=== PATIENT | male | born 1985 | race Two or more races ===

== ENCOUNTER 2017-10-08 14:58 | Emergency (ER) | payer OTHER ==
[~2017-10-08] VITALS: Ht 172.7 cm; Wt 72.6 kg
--- NOTE | 2017-10-08 15:40 | Emergency Room Report ---
History of Present Illness General Chief Complaint: To Be Triaged Source: Patient Present Illness HPI 32-year-old male, no significant past medical history, presenting with left pinky laceration. He was handling sheet metal, cut it. Had some bleeding. Has still been able to move his fingers. Tetanus is not up-to-date no other injury Allergies: Coded Allergies: No Known Allergies (Unverified , 10/08/17) Patient History Past Medical History: see triage record Past Surgical History: none Pertinent Family History: none Reviewed Nursing Documentation: PMH: Agreed, PSxH: Agreed Review of Systems All Other Systems: negative except mentioned in HPI Physical Exam Sp02 EP Interpretation: reviewed, normal General Appearance: normal inspection, well appearing, no apparent distress, alert, GCS 15, non-toxic Head: normocephalic, atraumatic Eyes: bilateral eye normal inspection, bilateral eye PERRL, bilateral eye EOMI ENT: normal ENT inspection, normal pharynx, normal voice, moist mucus membranes Neck: normal inspection, full range of motion, supple Respiratory: normal inspection, lungs clear, normal breath sounds, no respiratory distress, no retraction, no wheezing, speaking full sentences, chest symmetrical Cardiovascular #1: normal inspection, regular rate, rhythm, normal capillary refill Cardiovascular #2: 2+ radial (R), 2+ radial (L) Gastrointestinal: normal inspection, non tender, soft, non-distended, no guarding Musculoskeletal: other - Left fifth finger, palmar aspect with 2cm laceration in the proximal phalanx. Full range of motion. FDS and FDP intact Neurologic: normal inspection, alert, oriented x3, responsive, motor strength/ tone normal, sensory intact, normal gait, speech normal Psychiatric: normal inspection, judgement/insight normal, memory normal Skin: normal inspection, normal color, no rash, warm/dry, well hydrated, normal turgor Procedures Laceration/Wound Repair Laceration/Wound Repair : Consent: Verbal Wound Location: other - L 5th finger Wound's Depth, Shape: superficial, into muscle Wound Length (cm): 4 Wound Explored: clean Irrigated w/ Saline (ccs): 500 Betadine Prep?: Yes Anesthesia: 1% Lidocaine Volume Anesthetic (ccs): 5 Wound Debrided: minimal Wound Repaired With: sutures Suture Size/Type: 4:0 Number of Sutures: 9 Layer Closure?: Yes Patient Tolerated: Well Complications: None Medical Decision Making Diagnostic Impression: Primary Impression: Finger laceration ER Course 32-year-old male with left fifth finger laceration Plan Laceration repair, tetanus ER course: Laceration repaired, bacitracin with sterile dressing applied. Tdap given. Disposition: Patient will be discharged home. Strict return precautions discussed with patient such as fever, chills, increasing bleeding to site, purulent drainage, rapid swelling or redness to area. Patient verbalizes understanding. Patient sis informed of inevitable scar that will result from laceration despite repair. Pt instructed to avoid sun exposure to decrease the appearance of scar. Patient instructed to return to ED or their primary care doctor in 10-14 days for removal of sutures. Patient agrees with plan. Please note that this Emergency Department Report was dictated using [employer] technology software, occasionally this can lead to erroneous entry secondary to interpretation by the dictation equipment Disposition: HOME, SELF-CARE Condition: Improved Patient Instructions: Laceration Care, Adult, [id number] Additional Instructions: Please return to the emergency room or your primary care doctor's office in 14 days for suture removal Mathieu Jiang M.D. Oct 08, 2017 15:40
[2017-10-08] MEDS ORDERED: Tetanus/Diptheria/Pertussis Vaccine 0.5ml Syr IM ONE (16:00)
[2017-10-08 16:51] VITALS: BP 118/75
== END 2017-10-08 16:55 | disposition home or self-care (01) ==
LOC: EMR 16:03
DX: S61.217A Laceration without foreign body of left little finger without damage to nail, initial encounter (principal); Z23 Encounter for immunization; W45.8XXA Other foreign body or object entering through skin, initial encounter; Y92.9 Unspecified place or not applicable
CPT/HCPCS: 90471; 90715; 99283